=== PATIENT | female | born 1965 | race Caucasian/White ===

== ENCOUNTER → 2020-07-11 | Outpatient (CLI) | payer OTHER ==
[~2020-07-11] MED LIST: ACET500 PO; ATOR10; C COMPLEX1000 M1; FAMO10; FERSU300; IBUP200 PO; IBUP400 PO; METF500; VITAMIN D31000 UNI1
== END | disposition home or self-care (01) ==
LOC: LAB 08:20 → LAB SHORT 08:20
PROVIDERS: Nurse Practitioner
DX: Z01.419 Encounter for gynecological examination (general) (routine) without abnormal findings (principal)
CPT/HCPCS: G0145

== ENCOUNTER 2025-02-24 08:14 | Day surgery (SDC) | payer OTHER ==
[~2025-02-24] VITALS: Ht 162.6 cm; Wt 72.7 kg
[2025-02-24] MEDS ORDERED: CeFAZolin Sodium 2,000 MG VIAL ONE (08:23)
[2025-02-24] MEDS ORDERED: DESVENLAFAXINE50 M3 PO (08:34)
[2025-02-24] MEDS ORDERED: METOPROLOL SUCC25 MG PO (08:34)
[2025-02-24] MEDS ORDERED: MULVITA PO (08:36)
[2025-02-24] MEDS ORDERED: Bupivacaine 0.5% W/EPI 1:200000 SDV 30 ML Vial ONE (09:16)
[2025-02-24] MEDS ORDERED: FentaNYL Citrate 50 MCG/ML 2 ML Injection ONE (09:27)
[2025-02-24] MEDS ORDERED: Midazolam HCl 1MG / ML 2ML Vial ONE (09:27)
[2025-02-24] MEDS ORDERED: Metoclopramide HCl 5MG / ML 2ML Vial ONE (09:35)
[2025-02-24] MEDS ORDERED: Ondansetron HCl 2 MG / ML 2ML Vial ONE (09:35)
[2025-02-24 11:16] VITALS: BP 123/67
== END 2025-02-24 11:25 | disposition home or self-care (01) ==
LOC: ORSCSDS 08:14
PROVIDERS: Orthopaedic Surgery
PROC: 0JBG0ZX Excision of Right Lower Arm Subcutaneous Tissue and Fascia, Open Approach, Diagnostic (ICD-10-PCS; principal; 2025-02-24 09:45)
DX: M67.431 Ganglion, right wrist (principal); K21.9 Gastro-esophageal reflux disease without esophagitis; E11.9 Type 2 diabetes mellitus without complications; Z79.84 Long term (current) use of oral hypoglycemic drugs; Z79.899 Other long term (current) drug therapy
CPT/HCPCS: 82947; J0690; J2250; J2405; J2704; J2765; J3010; J7120